=== PATIENT | male | born 1990 | race Caucasian/White ===

== ENCOUNTER 2018-02-01 22:26 | Emergency (ER) | payer OTHER ==
[2018-02-01 22:39] VITALS: BP 107/62; PULSE 69; RESP 18; TEMP 98.2
--- NOTE | 2018-02-01 23:45 | XR ---
EXAMINATION TYPE: XR shoulder complete RT DATE OF EXAM: 02/01/2018 COMPARISON: NONE HISTORY: Shoulder pain TECHNIQUE: 3 views FINDINGS: I see no fracture nor dislocation. Joint spaces are normal. There are pins in the glenoid. IMPRESSION: No acute abnormality of the right shoulder. Previous surgery.
--- NOTE | 2018-02-01 23:50 | ED ---
Upper Extremity HPI - General Source: patient Mode of arrival: ambulatory Limitations: no limitations <Harriet Gant - Last Filed: 02/03/18 13:44> <Debbie Brian P - Last Filed: 02/08/18 04:03> - General Chief Complaint: Extremity Injury, Upper Stated Complaint: IHS-Shoulder Injury Time Seen by Provider: 02/01/18 22:42 - History of Present Illness Initial Comments: PATIENT Is it a 27 -year-old male presents department with right shoulder pain. Patient reports that he was at work, and was lifting something and pulled his right shoulder. He reports that he dislocated his right shoulder. He reports he' s done this in the past. Upon arriving to emergency department patient took off his sweatshirt and reports he relocated his shoulder on his own. Patient states he has no numbness and tingling in the arm. He reports that he has had previous right shoulder surgery. (Harriet Gant) - Related Data Home Medications Medication Instructions Recorded Confirmed Vivitrol(Unknown Dose) 1 injection IM Q28D 02/01/18 02/01/18 Previous Rx's Medication Instructions Recorded Ibuprofen 600 mg PO TID #20 tablet 02/01/18 Allergies Allergy/AdvReac Type Severity Reaction Status Date / Time No Known Allergies Allergy Verified 02/01/18 23:53 Review of Systems ROS Other: All systems not noted in ROS Statement are negative. <Harriet Gant - Last Filed: 02/03/18 13:44> ROS Other: All systems not noted in ROS Statement are negative. <Debbie Brian P - Last Filed: 02/08/18 04:03> ROS Statement: Those systems with pertinent positive or pertinent negative responses have been documented in the HPI. Past Medical History Past Medical History: No Reported History History of Any Multi-Drug Resistant Organisms: None Reported Past Surgical History: Orthopedic Surgery Past Psychological History: No Psychological Hx Reported Smoking Status: Current every day smoker Past Alcohol Use History: None Reported Past Drug Use History: None Reported <Harriet Gant - Last Filed: 02/03/18 13:44> General Exam Limitations: no limitations General appearance: alert, in no apparent distress Head exam: Present: atraumatic, normocephalic, normal inspection Eye exam: Present: normal appearance, PERRL, EOMI. Absent: scleral icterus, conjunctival injection, periorbital swelling ENT exam: Present: normal exam, mucous membranes moist Neck exam: Present: normal inspection. Absent: tenderness, meningismus, lymphadenopathy Respiratory exam: Present: normal lung sounds bilaterally. Absent: respiratory distress, wheezes, rales, rhonchi, stridor Cardiovascular Exam: Present: regular rate, normal rhythm, normal heart sounds. Absent: systolic murmur, diastolic murmur, rubs, gallop, clicks Right Shoulder Exam: Present: normal inspection, full ROM (Pain with abduction greater than 90 degrees, but patient has full ROM. ), other (4cm scar from previous surgery over anterior shoulder) Upper Arm exam: Present: normal inspection, full ROM Elbow exam: Present: normal inspection, full ROM Psychiatric exam: Present: normal affect, normal mood Skin exam: Present: warm, dry, intact, normal color. Absent: rash <Harriet Gant - Last Filed: 02/03/18 13:44> <Debbie Brian P - Last Filed: 02/08/18 04:03> - General Exam Comments Initial Comments: Well appearing 27 year old male, no distress. (Harriet Gant) Vital Signs 02/01/18 22:37 Temperature 98.2 F Pulse Rate 69 Respiratory 18 Rate Blood Pressure 107/62 O2 Sat by Pulse 97 Oximetry Medical Decision Making - Radiology Data Radiology results: report reviewed <Harriet Gant - Last Filed: 02/03/18 13:44> <Debbie Brian P - Last Filed: 02/08/18 04:03> - Medical Decision Making Patient is a 27 year old male with CC of right shoulder dislocation at work, and he subsequently relocated the shoulder while taking off sweat shirt in ED. Patient has full ROM of time of examination, evidence of previous surgery form scars on shoulder. Patient has normal sensation and normal capillary refill. Patient xray shows now acute fracture or discloation. Due to relocation of shoulder patient likely has tendon sprain, and deltoid strain. Patient placed in sling, discussed ortho follow up and PT follow up. REturn parameters discussed. (Harriet Gant) I was available for consultation in the emergency department. The history and physical exam were done by the midlevel provider. I was consulted for this patient's care. I reviewed the case with the midlevel provider and based on their presentation of the patient, I agree with the assessment, medical decision making and plan of care as documented. (Debbie Brian) - Radiology Data No fracture or abnormality or right shoulder, noted previous surgery. ( Harriet Gant) Disposition Is patient prescribed a controlled substance at d/c from ED?: No Time of Disposition: 23:49 <Harriet Gant - Last Filed: 02/03/18 13:44> <Debbie Brian - Last Filed: 02/08/18 04:03> Clinical Impression: Shoulder sprain, Shoulder dislocation, recurrent Disposition: HOME SELF-CARE Condition: Good Instructions: Shoulder Dislocation (ED) Additional Instructions: Advised to follow-up with primary care provider. Return to the emergency department if any alarming signs or symptoms occur. Prescriptions: Ibuprofen 600 mg PO TID #20 tablet Referrals: None,Stated [Primary Care Provider] - 1-2 days Lucius Acosta MD [STAFF PHYSICIAN] - 1-2 days
--- NOTE | 2018-02-02 08:10 | CDI ---
Documentation Clarification OP Dear RADHA Carnes: Please do addendum to ED report for HPI , Physical exam and MDM. Thank you, Greer Carson Victim Advocate If you have any question, Please contact software design manager at [phone] [facility]
== END 2018-02-02 00:15 | disposition home or self-care (01) ==
LOC: EC 22:26
DX: M24.411 Recurrent dislocation, right shoulder (principal); S43.401A Unspecified sprain of right shoulder joint, initial encounter; F17.200 Nicotine dependence, unspecified, uncomplicated; X50.9XXA Other and unspecified overexertion or strenuous movements or postures, initial encounter; Y92.69 Other specified industrial and construction area as the place of occurrence of the external cause; Y99.0 Civilian activity done for income or pay
CPT/HCPCS: 82075; 99283